=== PATIENT | female | born 1995 | race Two or more races ===

== ENCOUNTER 2025-09-29 11:58 | Emergency (ER) | payer SELFPAY ==
[~2025-09-29] VITALS: Ht 170.2 cm; Wt 76.0 kg
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
[2025-09-29 14:05] VITALS: BP 127/83; PULSE 71; RESP 18; TEMP 98.7; O2SAT 99
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
[2025-09-29] MEDS ORDERED: IBUP-1454 PO (14:54)
[2025-09-29] MEDS ORDERED: PRED20TA2 PO (14:54)
== END 2025-09-29 15:12 | disposition home or self-care (01) ==
LOC: ER 11:58
DX: S16.1XXA Strain of muscle, fascia and tendon at neck level, initial encounter (principal); G44.209 Tension-type headache, unspecified, not intractable; Z79.899 Other long term (current) drug therapy; Z79.52 Long term (current) use of systemic steroids; Z79.1 Long term (current) use of non-steroidal anti-inflammatories (NSAID); V89.2XXA Person injured in unspecified motor-vehicle accident, traffic, initial encounter; Y93.89 Activity, other specified; Y92.89 Other specified places as the place of occurrence of the external cause; Y99.8 Other external cause status
CPT/HCPCS: 70450; 72040